=== PATIENT | female | born 1960 | race Caucasian/White ===

== ENCOUNTER 2018-09-24 09:56 | Day surgery (SDC) | payer BC ==
[2018-09-20 09:55] VITALS: BMI 19.2
[2018-09-24 10:22] VITALS: TEMP 98.1
[2018-09-24] MEDS ORDERED: PROPOFOL 20 ML ONE (11:26)
[2018-09-24 13:03] VITALS: BP 100/61; PULSE 57
== END 2018-09-24 12:35 | disposition home or self-care (01) ==
LOC: FASU-ENDO 09:56
PROVIDERS: ATTEND Internal Medicine Gastroenterology
PROC: 0DJD8ZZ Inspection of Lower Intestinal Tract, Via Natural or Artificial Opening Endoscopic (ICD-10-PCS; principal; 2018-09-24 11:46)
DX: Z86.010 Personal history of colon polyps (principal)